=== PATIENT | male | born 1950 | race Caucasian/White ===

== ENCOUNTER 2017-01-25 08:50 | Inpatient (IN) | payer MEDICARE ==
[~2017-01-25] VITALS: Ht 175.3 cm; Wt 86.1 kg
[2017-01-25 10:54] LABS: HEMATOCRIT 28.7 % (39.2-51.8); HEMOGLOBIN 9.6 g/dL (13.7-18.0); WHITE BLOOD COUNT 7.1 x10^3/uL (3.4-10)
[2017-01-25 10:59] LABS: BLOOD UREA NITROGEN 22 mg/dL (7-18)
[2017-01-25] MEDS ORDERED: LORazepam 2 MG/ML, 1ML IVPush PRN (12:30)
[2017-01-25] MEDS ORDERED: ONDANSETRON 2MG/ML, 2ML IVPush PRN ×2 (12:30→18:00)
[2017-01-25] MEDS ORDERED: OPIUM/BELLADONNA SUPP.RECT 16.2-30 MG PR PRN (13:00)
[2017-01-25] MEDS ORDERED: CEFTRIAXONE PMX 1GM/50ML 50 ML IV ONE (13:00)
[2017-01-25] MEDS ORDERED: HYDROmorphone 1 MG/ML, 1ML IVPush ONE (13:00)
[2017-01-25 13:01] LABS: HEMATOCRIT 27.3 % (39.2-51.8); HEMOGLOBIN 9.1 g/dL (13.7-18.0); WHITE BLOOD COUNT 7.2 x10^3/uL (3.4-10)
[2017-01-25] MEDS ORDERED: CEFTRIAXONE PMX 2GM/50ML 50 ML ONE (13:05)
[2017-01-25] MEDS: CEFTRIAXONE PMX 2GM/50ML 50 ML IV SCH (13:14)
[2017-01-25] MEDS: SODIUM CHLORIDE 0.9% 1,000 ML IV SCH ×2 (13:14→20:33)
[2017-01-25 14:36] VITALS: BP 156/97
[2017-01-25] MEDS: morphine SULFATE 10 MG/ML, 1ML IVPush PRN (16:27)
[2017-01-25] MEDS ORDERED: FENTANYL PF 100 MCG/2ML ONE ×2 (16:37)
[2017-01-25] MEDS ORDERED: PROPOFOL 10 MG/ML, 20ML ONE (16:37)
[2017-01-25] MEDS ORDERED: MIDAZOLAM 1 MG/ML, 2ML ONE (16:37)
[2017-01-25] MEDS ORDERED: SUCCINYLCHOLINE 20 MG/ML, 10ML ONE (16:37)
[2017-01-25] MEDS ORDERED: ROCURONIUM 10MG/ML,5ML ONE (16:37)
[2017-01-25] MEDS ORDERED: NEOSTIGMINE 1 MG/ML, 10ML ONE (17:24)
[2017-01-25] MEDS ORDERED: GLYCOPYRROLATE 0.4 MG/2 ML, 2ML ONE (17:24)
[2017-01-25] MEDS ORDERED: CIPROFLOXACIN/PMX 400MG/200ML 200 ML ONE (17:38)
[2017-01-25] MEDS ORDERED: OXYcodone 5 MG/5 ML ORAL.SOL UDC PO PRN (18:00)
[2017-01-25] MEDS ORDERED: HYDROmorphone 1 MG/ML, 1ML IV PRN (18:00)
[2017-01-25] MEDS ORDERED: LABETALOL 5MG/ML, 20ML IV PRN (18:00)
[2017-01-25] MEDS ORDERED: ACETAMINOPHEN 325 MG TABLET PO PRN (18:00)
[2017-01-25] MEDS ORDERED: hydrALAzine 20 MG/ML, 1ML IV PRN (18:00)
[2017-01-25] MEDS ORDERED: FENTANYL PF 100 MCG/2ML IV PRN (18:00)
[2017-01-25 20:30] VITALS: BP 156/82
[2017-01-25 22:12] VITALS: BP 159/91
[2017-01-26 01:32] VITALS: BP 127/76
[2017-01-26] MEDS: morphine SULFATE 10 MG/ML, 1ML IVPush PRN ×3 (02:12→20:05)
[2017-01-26] MEDS: SODIUM CHLORIDE 0.9% 1,000 ML IV SCH ×3 (04:21→20:06)
[2017-01-26 04:41] LABS: BLOOD UREA NITROGEN 21 mg/dL (7-18)
[2017-01-26 04:47] LABS: ASPARTATE AMINO TRANSFERASE 82 U/L (15-37); TOTAL IRON BINDING CAPACITY 272 mcg/dL (250-450)
[2017-01-26 07:44] VITALS: BP 121/74
[2017-01-26] MEDS: CEFTRIAXONE PMX 2GM/50ML 50 ML IV SCH (12:31)
[2017-01-26 13:23] VITALS: BP 127/69
[2017-01-26 19:02] VITALS: BP 133/77
[2017-01-26] MEDS: FERROUS SULFATE 325 MG TABLET PO SCH (20:05)
[2017-01-27] VITALS (10 sets, daily range): BP systolic 133–172; BP diastolic 81–99
[2017-01-27] MEDS: morphine SULFATE 10 MG/ML, 1ML IVPush PRN ×4 (02:22→23:58)
[2017-01-27] MEDS: SODIUM CHLORIDE 0.9% 1,000 ML IV SCH ×2 (03:34→16:36)
[2017-01-27 04:47] LABS: HEMOGLOBIN 7.2 g/dL (13.7-18.0)
[2017-01-27 04:48] LABS: HEMATOCRIT 21.3 % (39.2-51.8)
[2017-01-27 04:51] LABS: BLOOD UREA NITROGEN 25 mg/dL (7-18)
[2017-01-27] MEDS: FERROUS SULFATE 325 MG TABLET PO SCH ×3 (09:15→17:04)
[2017-01-27] MEDS ORDERED: ACETAMINOPHEN 325 MG TABLET PO ONE (10:30)
[2017-01-27] MEDS ORDERED: DIPHENHYDRAMINE 25 MG CAPSULE PO ONE (10:30)
[2017-01-27] MEDS: METOPROLOL TARTRATE 50 MG TABLET PO SCH ×2 (10:50→20:05)
[2017-01-27] MEDS ORDERED: FERROUS SULFATE 325 MG TABLET PO SCH (12:00)
[2017-01-27] MEDS: CEFTRIAXONE PMX 2GM/50ML 50 ML IV SCH (16:36)
[2017-01-27] MEDS: hydrALAzine 20 MG/ML, 1ML IVPush PRN (17:23)
[2017-01-28 01:16] VITALS: BP 158/77
[2017-01-28] MEDS: SODIUM CHLORIDE 0.9% 1,000 ML IV SCH ×3 (01:24→16:45)
[2017-01-28 04:49] LABS: HEMATOCRIT 25.6 % (39.2-51.8); HEMOGLOBIN 8.7 g/dL (13.7-18.0); WHITE BLOOD COUNT 8.4 x10^3/uL (3.4-10)
[2017-01-28 04:58] LABS: BLOOD UREA NITROGEN 24 mg/dL (7-18)
[2017-01-28 05:02] LABS: ASPARTATE AMINO TRANSFERASE 59 U/L (15-37)
[2017-01-28] MEDS: morphine SULFATE 10 MG/ML, 1ML IVPush PRN ×5 (06:10→21:32)
[2017-01-28 08:46] VITALS: BP 151/78
[2017-01-28] MEDS: METOPROLOL TARTRATE 50 MG TABLET PO SCH ×2 (09:14→18:25)
[2017-01-28] MEDS: FERROUS SULFATE 325 MG TABLET PO SCH ×3 (09:15→16:46)
[2017-01-28 13:44] VITALS: BP 135/82
[2017-01-28] MEDS: CEFTRIAXONE PMX 2GM/50ML 50 ML IV SCH (16:45)
[2017-01-28 19:25] VITALS: BP 142/80
[2017-01-29] MEDS: SODIUM CHLORIDE 0.9% 1,000 ML IV SCH ×3 (00:38→22:38)
[2017-01-29 00:43] VITALS: BP 138/83
[2017-01-29] MEDS: morphine SULFATE 10 MG/ML, 1ML IVPush PRN ×4 (00:55→11:26)
[2017-01-29 04:52] LABS: HEMATOCRIT 26.2 % (39.2-51.8); HEMOGLOBIN 8.8 g/dL (13.7-18.0)
[2017-01-29 05:04] LABS: BLOOD UREA NITROGEN 29 mg/dL (7-18)
[2017-01-29] MEDS: METOPROLOL TARTRATE 50 MG TABLET PO SCH ×2 (06:18→18:28)
[2017-01-29 08:26] VITALS: BP 168/97
[2017-01-29] MEDS: FERROUS SULFATE 325 MG TABLET PO SCH ×3 (08:53→17:09)
[2017-01-29] MEDS: hydrALAzine 20 MG/ML, 1ML IVPush PRN (08:58)
[2017-01-29 10:24] VITALS: BP 166/79
[2017-01-29 14:32] VITALS: BP 172/84
[2017-01-29] MEDS: OxyconTIN ER 10 MG TAB.ER PO SCH (15:24)
[2017-01-29] MEDS: LACTULOSE 20 GM/30 ML UDC PO SCH ×2 (17:09→21:19)
[2017-01-29 18:47] VITALS: BP 164/99
[2017-01-29] MEDS: OXYcodone IR 5MG TABLET PO PRN (21:19)
[2017-01-30 00:29] VITALS: BP 170/91
[2017-01-30 00:41] VITALS: BP 169/103
[2017-01-30] MEDS: hydrALAzine 20 MG/ML, 1ML IVPush PRN (00:43)
[2017-01-30] MEDS: OxyconTIN ER 10 MG TAB.ER PO SCH ×2 (02:58→16:07)
[2017-01-30] MEDS: SODIUM CHLORIDE 0.9% 1,000 ML IV SCH ×2 (02:59→06:05)
[2017-01-30 05:19] LABS: HEMATOCRIT 28.8 % (39.2-51.8); HEMOGLOBIN 9.6 g/dL (13.7-18.0); WHITE BLOOD COUNT 8.4 x10^3/uL (3.4-10)
[2017-01-30 05:28] LABS: BLOOD UREA NITROGEN 26 mg/dL (7-18)
[2017-01-30 06:03] VITALS: BP 163/92
[2017-01-30] MEDS: METOPROLOL TARTRATE 50 MG TABLET PO SCH ×2 (06:05→18:16)
[2017-01-30 06:44] VITALS: BP 165/90
[2017-01-30] MEDS: OXYcodone IR 5MG TABLET PO PRN ×2 (07:47→20:10)
[2017-01-30] MEDS: FERROUS SULFATE 325 MG TABLET PO SCH ×3 (07:47→16:06)
[2017-01-30] MEDS: LACTULOSE 20 GM/30 ML UDC PO SCH ×3 (07:47→20:10)
[2017-01-30] MEDS: POLYETHYLENE GLYCOL 17 GM PACKET PO SCH (10:51)
[2017-01-30 15:25] VITALS: BP 159/88
[2017-01-30 19:04] VITALS: BP 155/82
[2017-01-31] MEDS: OXYcodone IR 5MG TABLET PO PRN ×3 (00:18→13:17)
[2017-01-31 01:08] VITALS: BP 158/94
[2017-01-31] MEDS: OxyconTIN ER 10 MG TAB.ER PO SCH ×2 (04:27→15:52)
[2017-01-31 04:48] LABS: BLOOD UREA NITROGEN 26 mg/dL (7-18)
[2017-01-31 05:35] VITALS: BP 151/94
[2017-01-31] MEDS: METOPROLOL TARTRATE 50 MG TABLET PO SCH ×2 (05:36→17:08)
[2017-01-31 08:11] VITALS: BP 161/95
[2017-01-31] MEDS: LACTULOSE 20 GM/30 ML UDC PO SCH ×2 (09:00→16:00)
[2017-01-31] MEDS: POLYETHYLENE GLYCOL 17 GM PACKET PO SCH (09:13)
[2017-01-31] MEDS: FERROUS SULFATE 325 MG TABLET PO SCH ×3 (09:13→17:08)
[2017-01-31] MEDS ORDERED: METO50TA82 PO (09:41)
[2017-01-31] MEDS ORDERED: FERR-36 PO (09:41)
[2017-01-31] MEDS ORDERED: OXYC5TAB3 PO (09:41)
[2017-01-31] MEDS ORDERED: POLY17PO5 PO (09:41)
[2017-01-31] MEDS ORDERED: OXYC10TA47 PO (09:41)
[2017-01-31 14:26] VITALS: BP 164/92
[2017-01-31] MEDS ORDERED: TAMSULOSIN 0.4 MG CAP.ER.24H PO ONE (15:00)
== END 2017-01-31 18:33 | disposition home or self-care (01) | DRG 668 ==
LOC: ED 10:11 → EDIP 11:50 → 3NW 14:27
PROVIDERS: ADMIT Family Medicine; ATTEND Hospitalist
PROC: 0T5B8ZZ Destruction of Bladder, Via Natural or Artificial Opening Endoscopic (ICD-10-PCS; 2017-01-25)
PROC: 0TBB8ZZ Excision of Bladder, Via Natural or Artificial Opening Endoscopic (ICD-10-PCS; 2017-01-25)
PROC: 0TCB8ZZ Extirpation of Matter from Bladder, Via Natural or Artificial Opening Endoscopic (ICD-10-PCS; 2017-01-25)
PROC: 30233N1 Transfusion of Nonautologous Red Blood Cells into Peripheral Vein, Percutaneous Approach (ICD-10-PCS; principal; 2017-01-27)
DX: C67.9 Malignant neoplasm of bladder, unspecified (principal); E43 Unspecified severe protein-calorie malnutrition; N17.9 Acute kidney failure, unspecified; C78.01 Secondary malignant neoplasm of right lung; N13.30 Unspecified hydronephrosis; D62 Acute posthemorrhagic anemia; C78.02 Secondary malignant neoplasm of left lung; C79.51 Secondary malignant neoplasm of bone; N18.3 Chronic kidney disease, stage 3 (moderate); C61 Malignant neoplasm of prostate; K40.90 Unilateral inguinal hernia, without obstruction or gangrene, not specified as recurrent; K59.03 Drug induced constipation; M51.36 Other intervertebral disc degeneration, lumbar region; N32.0 Bladder-neck obstruction; R31.0 Gross hematuria; R59.0 Localized enlarged lymph nodes; Z68.28 Body mass index [BMI] 28.0-28.9, adult; D50.0 Iron deficiency anemia secondary to blood loss (chronic); I12.9 Hypertensive chronic kidney disease with stage 1 through stage 4 chronic kidney disease, or unspecified chronic kidney disease; N13.9 Obstructive and reflux uropathy, unspecified; Z80.1 Family history of malignant neoplasm of trachea, bronchus and lung
CPT/HCPCS: 36415; 51702; 71010; 74176; 76700; 78306; 80048; 80053; 80061; 81001; 82040; 83540; 83550; 83735; 84100; 84153; 84439; 84443; 85014; 85018; 85025; 85610; 86850; 86900; 86923; 87040; 87086; 88307; 93005; 99285; J0696; J0744; J2250; J2704; J2710; J3010; A9503; C9898; J0330; J0360; J2060; J2270; J7030; P9016; Q0163